=== PATIENT | female | born 1975 | race Two or more races ===

== ENCOUNTER 2024-07-02 15:04 | Emergency (ER) | payer OTHER ==
[~2024-07-02] VITALS: Ht 167.6 cm; Wt 124.3 kg
[2024-07-02] MEDS ORDERED: KETOROLAC TROMETHAMINE 30 MG VIAL IM STA (18:09)
[2024-07-02] MEDS ORDERED: ORPHENADRINE CITRATE 30 MG/ML AMPUL IM STA (18:10)
[2024-07-02] MEDS ORDERED: DEXAMETHASONE SODIUM PHOSPHATE 4 MG/ML VIAL IM STA (18:10)
[2024-07-02] MEDS ORDERED: ZANAFLEX4 M1 PO (18:14)
[2024-07-02] MEDS ORDERED: NABUMETONE750 MG PO (18:14)
== END 2024-07-02 18:22 | disposition home or self-care (01) ==
LOC: ER 15:06
DX: M62.838 Other muscle spasm (principal); M54.2 Cervicalgia; M54.32 Sciatica, left side